=== PATIENT | female | born 1930 | race Asian ===

== ENCOUNTER 2017-08-25 21:36 | Inpatient (IN) | payer OTHER ==
[~2017-08-25] VITALS: Ht 152.4 cm; Wt 102.1 kg
--- NOTE | 2017-08-25 23:00 | NUR ---
RECEIVED REPORT FROM JUAN HURD AT [facility]
[2017-08-25 23:35] VITALS: BP 135/85
--- NOTE | 2017-08-25 23:35 | NUR ---
PT ARRIVED ON THE UNIT VIA GURNEY IN STABLE CONDITION. NO S/S OF DISTRESS NOTED. RR EVEN/UNLABORED. PT AMBULATED FROM GURNEY TO BED WITH KIANA AND STANDBY ASSISTANCE. IV TO L WRIST 22G PATENT AND INTACT. SKIN INTACT, WARM AND DRY TO TOUCH, COLOR WNL. PT HAS GUERITA DRAIN TO R UPPER QUADRANT AND 3 INCISIONS TO ABD WITH JOSE MANUEL AND DRESSING DRY AND INTACT. BOWEL SOUNDS PRESENT AND ACTIVE. INITIAL ASSESSMENT COMPLETED. PLAN OF CARE DISCUSSED WITH PT, VERBALIZED UNDERSTANDING. ALL SAFETY PRECAUTIONS MET, CALL LIGHT WITHIN REACH, WILL CONTINUE TO MONITOR.
--- NOTE | 2017-08-26 | NUR ---
PT REFUSES TO PUT ON YELLOW GOWN AND STATES, "ALL I HAVE BEEN WEARING IS BLUE I WANT TO KEEP THIS PINK ONE ON."
--- NOTE | 2017-08-26 00:11 | NUR ---
PAGED DR. REYES FOR ORDERS, SHE STATES SHE WILL PUT ORDERS IN
--- NOTE | 2017-08-26 00:15 | NUR ---
DR. REYES STATES SHE WILL NOT PUT THE ORDER FOR OBTAINING CONSENT IN AND THAT MUST BE DONE BY DR. MOJICA
--- NOTE | 2017-08-26 00:20 | NUR ---
DR. MOJICA CONTACTED BUT NO ANSWER
[2017-08-26] MEDS ORDERED: NACL 0.9% 1,000 ML IV SCH (00:46)
[2017-08-26] MEDS ORDERED: MORPHINE SULFATE 4 MG/ML SYR IVP PRN (00:50)
[2017-08-26] MEDS ORDERED: MORPHINE SULFATE 2 MG/ML SYR IVP PRN (00:50)
[2017-08-26 04:00] VITALS: BP 136/75
--- NOTE | 2017-08-26 04:54 | NUR ---
DR. RANDY REYNOSO. STATED TO PUT IN ORDER TO OBTAIN CONSENT
--- NOTE | 2017-08-26 04:54 | NUR ---
PT STATES SHE HAS PAIN IN HER SIDE BUT DOES NOT WANT TO TAKE ANY PAIN MEDICATION
--- NOTE | 2017-08-26 06:47 | NUR ---
PATIENT HAS BEEN SCREENED AND CATEGORIZED HIGH NUTRITION RISK. PATIENT WILL BE SEEN WITHIN 1-2 DAYS OF ADMISSION. 08/26/17-08/27/17 ALBERTO SALES MS, RDN
[2017-08-26 07:12] LABS: BASOPHILS # (AUTO) 0.1 K/uL (0.00-0.22); BASOPHILS % (AUTO) 0.7 % (0.0-2.0); EOSINOPHILS # (AUTO) 0.3 K/uL (0-0.4); EOSINOPHILS % (AUTO) 4.2 % (0.0-4.0); HEMATOCRIT 38.9 % (36-48); HEMOGLOBIN 12.8 g/dL (12.0-16.0); LYMPHOCYTES # (AUTO) 1.2 K/uL (2.5-16.5); LYMPHOCYTES % (AUTO) 16.3 % (20.5-51.1); MEAN CORPUSCULAR HEMOGLOBIN 30 pg (27-31); MEAN CORPUSCULAR HGB CONC 33 g/dL (33-37); MEAN CORPUSCULAR VOLUME 90.5 fL (80-94); MONOCYTES # (AUTO) 0.7 K/uL (0.8-1.0); MONOCYTES % (AUTO) 9.2 % (1.7-9.3); NEUTROPHILS # (AUTO) 5.2 K/uL (1.8-7.7); NEUTROPHILS % (AUTO) 69.6 % (42.2-75.2); PLATELET COUNT (AUTO) 135 K/uL (140-450); RED CELL DISTRIBUTION WIDTH 14.7 % (11.6-13.7); WHITE BLOOD COUNT (AUTO) 7.5 K/uL (4.8-10.8)
[2017-08-26 07:30] VITALS: BP 184/78
--- NOTE | 2017-08-26 07:30 | NUR ---
PATIENT WAS BEING TRANSFERRED TO OR FOR PROCEDURE. PATIENT IS STABLE AT THIS TIME
--- NOTE | 2017-08-26 07:33 | NUR ---
REPORT GIVEN TO DAY NURSE FOR CONTINUITY OF CARE, PT IN STABLE CONDITION
[2017-08-26 07:42] LABS: ALBUMIN 2.9 g/dL (3.4-5.0); ASPARTATE AMINOTRANSFERASE 42 U/L (15-37); CARBON DIOXIDE 24.5 mmol/L (21-32); CHLORIDE 107 mmol/L (98-107); CREATININE 0.8 mg/dL (0.6-1.3); GLUCOSE 110 mg/dL (74-106); POTASSIUM 3.5 mmol/L (3.5-5.1); SODIUM SERUM 142 mmol/L (136-145); TOTAL BILIRUBIN 0.9 mg/dL (0.0-1.0); UREA NITROGEN, BLOOD 7 mg/dL (7-18)
[2017-08-26] MEDS ORDERED: MIDAZOLAM 2 MG/2 ML VIAL ONE (07:42)
[2017-08-26] MEDS ORDERED: fentaNYL 0.05 MG/ML VIAL ONE (07:42)
[2017-08-26] MEDS ORDERED: GLUCAGON 1 MG VIAL ONE (08:00)
[2017-08-26] MEDS ORDERED: LABETALOL 100 MG/20 ML VIAL ONE (08:00)
[2017-08-26] MEDS ORDERED: hydrALAZINE 20 MG/ML VIAL ONE (08:00)
--- NOTE | 2017-08-26 08:20 | NUR ---
PT'S SON MUKUND BARAKAT [phone] HERE PT ALREADY IN GI LAB, DR MOJICA MADE AWARE OF FAMILY PRESENCE, DR MOJICA SPOKE WITH MUKUND ON THE PHONE. OTHER CONTACT DAUGHTER REY ARMSTRONG [phone]
[2017-08-26 10:10] VITALS: BP 130/68
--- NOTE | 2017-08-26 10:10 | NUR ---
PATIENT WAS TRANSFERRED BACK TO UNIT FROM GI. REPORT WAS GIVEN AT BEDSIDE. VS IS STABLE. PATIENT IS DROWSY, AROUSABLE BY SHAKING. RESPIRATION EVEN, UNLABOR ON ROOM AIR. SKIN DRY AND WARM. LUNGS SOUND CLEAR THROUGHOUT. BOWEL SOUND ACTIVE. DRESSINGS ARE CLEAN AND INTACT. GUERITA DRAIN AND IV ARE PATENT AND INTACT. PLAN OF CARE WAS DISCUSSED WITH FAMILY. BED AT LOW POSITION, SIDE RAILS UP. CALL LIGHT WITHIN REACH.
--- NOTE | 2017-08-26 10:53 | NUR ---
08/26/17 RD INITIAL ASSESSMENT COMPLETED PLEASE REFER TO NUTRITION ASSESSMENT UNDER CARE ACTIVITY FOR ESTIMATED NUTRITIONAL NEEDS. RD RECOMMENDATIONS: 1. IF/WHEN MEDICALLY APPROPRIATE, CONSIDER INITIATING CLEAR LIQUID DIET, ADVANCING TOLERATED TO FULL LIQUID DIET AND THEN TO REGULAR TOLERATED. 2. CONSULT RDN PRN. 3. RD WILL F/U 2-3 DAYS; HIGH RISK. ALBERTO SALES, MS, RDN
[2017-08-26] MEDS: NACL 0.9% 1,000 ML IV SCH ×2 (11:11→18:08)
--- NOTE | 2017-08-26 11:30 | NUR ---
PATIENT AWAKE, ALERT. RESPIRATION EVEN, UNLABOR ON ROOM AIR. NO DISTRESS NOTED AT THIS TIME. FAMILY AT BEDSIDE. CALL LIGHT WITHIN REACH
--- NOTE | 2017-08-26 14:41 | NUR ---
PATIENT WAS SLEEPING COMFORTABLY, EASILY AROUSABLE BY NAME. RESPIRATION EVEN, UNLABOR ON ROOM AIR. DR. RENDON WAS AT BEDSIDE. NO DISTRESS NOTED AT THIS TIME. CALL LIGHT WITHIN REACH
[2017-08-26 16:00] VITALS: BP 139/71
--- NOTE | 2017-08-26 16:16 | NUR ---
PATIENT WAS SLEEPING COMFORTABLY, EASILY AROUSABLE BY NAME. RESPIRATION EVEN, UNLABOR ON ROOM AIR. DENIED PAIN, SOB AT THIS TIME. VS IS STABLE. CALL LIGHT WITHIN REACH
[2017-08-26] MEDS ORDERED: ATEN50TA8 PO (18:25)
[2017-08-26] MEDS ORDERED: LOVA40TA4 PO (18:25)
--- NOTE | 2017-08-26 18:30 | NUR ---
PATIENT AWAKE, ALERT. RESPIRATION EVEN, UNLABOR ON ROOM AIR. NO DISTRESS NOTED AT THIS TIME. FAMILY AT BEDSIDE. CALL LIGHT WITHIN REACH
--- NOTE | 2017-08-26 18:38 | NUR ---
SPOKE TO DR. ANDREW OVER THE PHONE, OK TO CONTINUE HOME MEDS.
[2017-08-26] MEDS ORDERED: ATENOLOL 50 MG TAB PO ONE ×2 (19:00→21:00)
--- NOTE | 2017-08-26 19:17 | NUR ---
ENDORSEMENT GIVEN TO THE MOUNTAIN OR GLACIER GUIDE NURSE. PATIENT IS STABLE AT THIS TIME
--- NOTE | 2017-08-26 19:18 | NUR ---
RECD. RESTING IN BED SLEEPING BUT EASILY WAKES UP WHEN TOUCHED AND NAME CALLED. A/OX4. RESPIRATION EVEN AND UNLABORED. IV OF NS AT 120 ML/HR INFUSING, LEFT WRIST G20. WITH RIGHT UPPER QUADRANT GUERITA, INCISION IN THE ABDOMEN (3) WITH JOSE MANUEL, DRESSING DRY AND INTACT. PLAN OF CARE DISCUSSED. VERBALIZED UNDERSTANDING. SAFETY MEASURES ENFORCED. DENIES PAIN 0/10.
--- NOTE | 2017-08-26 19:19 | NUR ---
Patient's Plan of Care was discussed and reviewed with ERIC: ROSA
[2017-08-26 20:00] VITALS: BP 160/70
[2017-08-26] MEDS ORDERED: NON-FORMULARY ITEM (Lovastatin 1 TAB) PO SCH (21:00)
[2017-08-26] MEDS: SIMVASTATIN 20 MG TAB PO SCH (21:26)
[2017-08-27] VITALS: BP 164/69
[2017-08-27] MEDS ORDERED: cloNIDine 0.1 MG TAB PO PRN (01:25)
--- NOTE | 2017-08-27 01:55 | NUR ---
BP - 167/81 , HR - 71, MEDICATED WITH CATAPRES 0.1 MG. TAB ORDERED.
[2017-08-27] MEDS: NACL 0.9% 1,000 ML IV SCH ×3 (02:43→18:43)
--- NOTE | 2017-08-27 02:45 | NUR ---
ASSISTED TO USE BEDPAN, HAD MODERATE AMOUNT OF YELLOW URINE. ASSISTED WITH CARLOS CARE.
--- NOTE | 2017-08-27 03:35 | NUR ---
BP CHECKED - 161/70, HR 71. BP DECREASED FROM 163/80. [id number], WILL CHECK BP AGAIN AND MEDICATE ORDERED.
[2017-08-27 04:00] VITALS: BP 143/64
--- NOTE | 2017-08-27 04:00 | NUR ---
BP CHECKED - 143/64, HR - 74. NO COMPLAINT OF PAIN 0/10.
--- NOTE | 2017-08-27 07:25 | NUR ---
CONDITION REMAIN STABLE. ENDORSED TO AM NURSE FOR CONTINUITY OF CARE.
--- NOTE | 2017-08-27 07:40 | NUR ---
PATIENT AWAKE, ALERT. RESPIRATION EVEN, UNLABOR ON ROOM AIR. SKIN DRY AND WARM. LUNGS SOUND CLEAR THROUGHOUT. BOWEL SOUND ACTIVE. DENIED PAIN, SOB AT THIS TIME. DRESSING DRY AND INTACT. GUERITA DRAIN AND IV PATENT AND INTACT. PLAN OF CARE WAS DISCUSSED WITH PATIENT. BED AT LOW POSITION, SIDE RAILS UP. CALL LIGHT WITHIN REACH.
[2017-08-27 08:00] VITALS: BP 140/116
[2017-08-27] MEDS: ATENOLOL 50 MG TAB PO SCH (09:17)
--- NOTE | 2017-08-27 11:50 | NUR ---
PATIENT WAS SLEEPING COMFORTABLY. RESPIRATION EVEN, UNLABOR ON ROOM AIR. NO DISTRESS NOTED AT THIS TIME. FAMILY AT BEDSIDE. CALL LIGHT WITHIN REACH
--- NOTE | 2017-08-27 14:30 | NUR ---
PATIENT AWAKE, ALERT. RESPIRATION EVEN, UNLABOR ON ROOM AIR. DRESSING WAS CHANGED PER ORDER. FAMILY AT BEDSIDE. NO DISTRESS NOTED AT THIS TIME. CALL LIGHT WITHIN REACH
[2017-08-27 16:00] VITALS: BP 125/77
--- NOTE | 2017-08-27 17:13 | NUR ---
PATIENT AWAKE, ALERT. RESPIRATION EVEN, UNLABOR ON ROOM AIR. DENIED PAIN, SOB AT THIS TIME. PLAN OF CARE WAS UPDATED WITH PATIENT AND FAMILY. VS IS STABLE. NO DISTRESS NOTED AT THIS TIME
--- NOTE | 2017-08-27 18:22 | NUR ---
PATIENT AWAKE, ALERT, EATING DINNER COMFORTABLY. RESPIRATION EVEN, UNLABOR ON ROOM AIR. NO DISTRESS NOTED AT THIS TIME. CALL LIGHT WITHIN REACH
--- NOTE | 2017-08-27 19:16 | NUR ---
ENDORSEMENT GIVEN TO THE CLINICAL RESEARCH TECHNICIAN NURSE. PATIENT IS STABLE AT THIS TIME
--- NOTE | 2017-08-27 19:17 | NUR ---
RECD. RESTING IN BED, AWAKE, A/OX4. RESPIRATION EVEN AND UNLABORED. IV OF NS AT 120 ML/HR INFUSING, LEFT WRIST G22. INCISION IN THE ABDOMEN, COVERED WITH DRESSING WITH 1 GUERITA DRAINING SMALL AMOUNT OF YELLOWISH WITH TINT OF PINK FLUID. CALM AND PLEASANT. SAFETY MEASURES ENFORCED. INSTRUCTED TO CALL NURSE BEFORE GETTING OUT OF BED FOR ASSISTANCE. PLAN OF CARE FOR THE SHIFT DISCUSSED. VERBALIZED UNDERSTANDING. DENIES PAIN 0/10.
--- NOTE | 2017-08-27 19:18 | NUR ---
Patient's Plan of Care was discussed and reviewed with ERIC: ROSA
[2017-08-27] MEDS: SIMVASTATIN 20 MG TAB PO SCH (20:44)
--- NOTE | 2017-08-27 22:00 | NUR ---
COMPLAINT OF THE NOISE MADE BY THE OTHER PATIENT IN THE NEARBY BED, WANTS TO GO HOME. ASSURED THAT PATIENT WILL BE REQUESTED TO KEEP QUIET.
[2017-08-27] MEDS ORDERED: ZOLPIDEM 5 MG TAB PO SCH (22:30)
--- NOTE | 2017-08-27 23:00 | NUR ---
RESTING IN BED, STILL AWAKE. ROOM QUIET WITH THE OTHER PATIENT NOT USING HER CELLPHONE ANYMORE.
[2017-08-28] VITALS: BP 156/69
--- NOTE | 2017-08-28 02:00 | NUR ---
AWAKE IN BED, WANTS TO GO HOME, CONFUSED. ORIENTED ON HOSPITAL SETTING. REMINDED OF THE TIME, NOBODY WILL TAKE HER HOME. REFUSED SLEEPING PILL. WILL WAIT TILL MORNING TO BE ABLE TO GO HOME.
--- NOTE | 2017-08-28 02:30 | NUR ---
SLEEPING COMFORTABLY IN BED.
[2017-08-28] MEDS: NACL 0.9% 1,000 ML IV SCH ×2 (04:12→11:36)
--- NOTE | 2017-08-28 05:49 | NUR ---
ASSISTED TWO TIMES WITH THE BEDPAN, ABLE TO VOID MODERATE AMOUNT OF CLEAR YELLOW URINE.
--- NOTE | 2017-08-28 06:39 | NUR ---
CONDITION REMAIN STABLE. STILL VERBALIZING SHE WANTS TO GO HOME TODAY. WILL ENDORSE TO AM NURSE FOR CONTINUITY OF CARE.
--- NOTE | 2017-08-28 07:20 | NUR ---
ENDORSED TO AM NURSE FOR CONTINUITY OF CARE.
--- NOTE | 2017-08-28 07:21 | NUR ---
RECEIVED BEDSIDE REPORT FROM EQUIPMENT MAN NURSE. PATIENT IS SLEEPING. NO SIGNS OF DISTRESS ON ROOM AIR. IV ON L WRIST 22G INFUSING NS AT 120. IV IS CLEAN, DRY AND INTACT. PATIENT IS S/P LAP JENNIFER FROM [place]. JOSE MANUEL AT INCISION SITES, CHRIS, CLEAN DRY AND INTACT. R UPPER QUAD GUERITA DRAIN AT 25ML, YELLOW DRAINAGE. NO COMPLAINTS OF PAIN AT THIS TIME. BED IN LOW POSITION. CALL LIGHT WITHIN REACH, WILL CONTINUE TO MONITOR THE PATIENT.
[2017-08-28 08:00] VITALS: BP 166/68
[2017-08-28] MEDS: ATENOLOL 50 MG TAB PO SCH (09:53)
[2017-08-28] MEDS: ACETAMINOPHEN 325 MG TAB PO PRN ×2 (09:54→17:17)
--- NOTE | 2017-08-28 09:55 | NUR ---
ADMINISTERED MEDS. PATIENT TOLERATED WELL. TEMP OF 99.7 AND MILD PAIN ADMINISTERED TYLENOL. BED IN LOW POSITION. CALL LIGHT WITHIN REACH. WILL CONTINUE TO MONITOR THE PATIENT,
--- NOTE | 2017-08-28 10:18 | NUR ---
FAXED INITIAL REVIEW TO [facility], SPOKE WITH KATHERINE AT [employer] [phone] PHONE [phone] SPOKE WITH JOSE ARMANDO FROM [facility]. REVIEWS JUST GO TO [facility].
[2017-08-28] MEDS ORDERED: TRAM50TA1 PO (10:59)
[2017-08-28] MEDS ORDERED: ACET-1182 PO (10:59)
--- NOTE | 2017-08-28 11:17 | NUR ---
PATIENT DOES NOT WANT TO BE DISCHARGED HOME. AWAITING DR RENDON TO SEE IF HE WILL PUT A CONSULT FOR CASE MANAGEMENT OF GRIZZLYMAN TO SEE IF SHE HAS OPTIONS TO GO TO A DIFFERENT FACILITY.
--- NOTE | 2017-08-28 13:00 | NUR ---
PATIENT UP AND WALKING WITH PHYSICAL THERAPY. PATIENTS GAIT IS UNSTEADY AND UNABLE TO AMBULATE WITHOUT ASSISTANCE. PATIENT WALKS WITH A WALKER.
--- NOTE | 2017-08-28 14:42 | NUR ---
TALKED TO DR RENDON AND SYSTEMS TECHNOLOGIST, SONIA. PATIENT WILL BE TRANSFERRED TO A NURSING FACILITY FOR PHYSICAL THERAPY.
[2017-08-28 15:09] LABS: ANION GAP 13.5 (8-16); CARBON DIOXIDE 24.8 mmol/L (21-32); CHLORIDE 104 mmol/L (98-107); CREATININE 0.9 mg/dL (0.6-1.3); GLUCOSE 167 mg/dL (74-106); POTASSIUM 3.3 mmol/L (3.5-5.1); SODIUM SERUM 139 mmol/L (136-145); UREA NITROGEN, BLOOD 6 mg/dL (7-18)
[2017-08-28 15:16] LABS: ALBUMIN 2.6 g/dL (3.4-5.0); ASPARTATE AMINOTRANSFERASE 21 U/L (15-37); TOTAL BILIRUBIN 0.7 mg/dL (0.0-1.0)
[2017-08-28 16:00] VITALS: BP 113/65
--- NOTE | 2017-08-28 16:17 | NUR ---
Stamping Die Maker Note: Snf placement follow up: Per patient and patient's grandson Eduar Stubbs , their 1st snf choice is [facility] , 2nd choice is [facility] , and 3rd is [facility] . I faxed inquiries to these snfs.
--- NOTE | 2017-08-28 16:22 | NUR ---
SPOKE WITH KATHERINE FROM [facility]. [phone]. SHE TOLD ME SHE WOULD CALL SEA FROM [facility] AND GIVE HIM AUTH. NO AUTH NEEDED FOR [facility].
--- NOTE | 2017-08-28 16:25 | NUR ---
FAXED PT MARKO TO [facility] [phone] PHONE KATHERINE [phone]
--- NOTE | 2017-08-28 16:35 | NUR ---
Enterprise Systems Administrator Note: Per Fede from [facility] , patient has been accepted and may go to room 107C today, he stated he will contact and inquire if he would like to be accepting physician for this patient at their facility. Fede stated patient can be transferred to their facility any time today. Fede reported he already obtained snf authorization from family preservation caseworker Ernestine from [facility], family preservation caseworkermanager Kellee lou. Addendum: 08/28/17 at 1636 by aTwana Rodriguez SS correction: family preservation caseworkermanager Sinha from [facility].
--- NOTE | 2017-08-28 17:17 | NUR ---
ADMINISTERED TYLENOL FOR A FEVER OF 100. WILL REASSESS TEMP
--- NOTE | 2017-08-28 17:46 | NUR ---
GAVE REPORT TO NURSE IN [facility], NAME IS SHINE. ANSWERED ALL QUESTIONS AT THE TIME. GAVE HER MY CALL BACK NUMBER
--- NOTE | 2017-08-28 18:17 | NUR ---
FEVER WENT DOWN TO 98.6. PATIENT IS SITTING AT BEDSIDE WITH GRANDSON. PATIENT HAS NO COMPLAINTS AT THIS TIME
--- NOTE | 2017-08-28 19:10 | NUR ---
GAVE BEDSIDE REPORT TO HEEL PACKER NURSE. PATIENT IN STABLE CONDITION. ENDORSED HER TO REMOVE IV AND ID BANDS
--- NOTE | 2017-08-28 19:15 | NUR ---
RECEIVED REPORT FROM DAY SHIFT NURSE. AAOX4. NO C/O PAIN. NO RESP DISTRESS NOTED. IV TO LEFT WRIST #22G, SALINE LOCK. PT WILL BE DISCHARGED TONIGHT TO [facility]. SAFETY PRECAUTION IN PLACE. CALL LIGHT WITHIN REACH.
[2017-08-28] MEDS: SIMVASTATIN 20 MG TAB PO SCH (20:58)
--- NOTE | 2017-08-28 21:00 | NUR ---
DUE MEDS GIVEN. PT TOLERATED WELL. NO C/O PAIN. NO FEVER NOTED.
--- NOTE | 2017-08-28 22:45 | NUR ---
[facility] HERE TO [facility]KER MACHINE PT. PT IS GOING TO [facility] ROOM 123B. D/C PAPERS SIGNED BY PT AND COPIES GIVEN TO HER. REPORT AND DC PACKET GIVEN TO [facility]. ID BANDS AND IV LINE REMOVED. NO PERSONAL BELONGINGS. PT'S CANE GIVEN TO EMT. PT DENIES PAIN OR DISCOMFORT. NO RESP DISTRESS NOTED. AFEBRILE. PT IN STABLE CONDITION.
--- NOTE | 2017-08-29 08:24 | NUR ---
Assessor Note: Late entry for 08/28/17: I informed patient's grandson Eduar Stubbs patient has been accepted at [facility] and will be transfer to that facility today. He verbalized understanding.
== END 2017-08-28 22:50 | DRG 444 ==
LOC: MTU 23:35
PROVIDERS: ADMIT Hospitalist; ATTEND Hospitalist
PROC: 0F7C8ZZ Dilation of Ampulla of Vater, Via Natural or Artificial Opening Endoscopic (ICD-10-PCS; principal; 2017-08-25)
PROC: 0FCC8ZZ Extirpation of Matter from Ampulla of Vater, Via Natural or Artificial Opening Endoscopic (ICD-10-PCS; 2017-08-25)
PROC: BF101ZZ Fluoroscopy of Bile Ducts using Low Osmolar Contrast (ICD-10-PCS; 2017-08-25)
DX: K80.71 Calculus of gallbladder and bile duct without cholecystitis with obstruction (principal); K85.10 Biliary acute pancreatitis without necrosis or infection; E44.1 Mild protein-calorie malnutrition; Z68.41 Body mass index [BMI] 40.0-44.9, adult; I10 Essential (primary) hypertension; D69.6 Thrombocytopenia, unspecified; E78.5 Hyperlipidemia, unspecified; K76.89 Other specified diseases of liver; R74.0 Nonspecific elevation of levels of transaminase and lactic acid dehydrogenase [LDH]; Z90.49 Acquired absence of other specified parts of digestive tract
CPT/HCPCS: 36415; 43277; 74330; 80053; 83690; 85025; 87081; 97530; C1769; C1773; J0360; J1610; J2250; J3010; J3490; J7030; Q9967